=== PATIENT | female | born 1965 | race Hispanic/Latino ===

== ENCOUNTER 2021-09-23 13:15 | Day surgery (SDC) | payer OTHER ==
[2021-09-23 14:16] VITALS: BP 124/58; TEMP 98.7; BMI 38.0
[2021-09-23] MEDS ORDERED: Sodium Bicarbonate 2.5 MEQ/5 ML VIAL ONE (14:23)
[2021-09-23] MEDS ORDERED: Lidocaine 1% PF 5 ML VIAL ONE (14:24)
[2021-09-23] MEDS ORDERED: Albumin 25% 100 ML ONE (14:27)
== END 2021-09-23 15:28 | disposition home or self-care (01) ==
LOC: CSHULT 13:15
PROVIDERS: ATTEND Physician Assistant Medical
DX: R18.8 Other ascites (principal); K74.60 Unspecified cirrhosis of liver; E87.1 Hypo-osmolality and hyponatremia
CPT/HCPCS: 49083; P9047